=== PATIENT | male | born 1950 | race Caucasian/White ===

== ENCOUNTER → 2023-12-06 06:11 | Day surgery (SDC) | payer MEDICARE, OTHER, SELFPAY | LOC: GI 06:11 | PROVIDERS: ATTENDING PHYSICIAN Internal Medicine | DX: Z12.11 Encounter for screening for malignant neoplasm of colon (principal); Z86.010 Personal history of colon polyps; K57.30 Diverticulosis of large intestine without perforation or abscess without bleeding; K64.8 Other hemorrhoids | CPT/HCPCS: G0105 ==

== ENCOUNTER 2024-03-29 01:06 | Emergency (ER) | payer MEDICARE, OTHER, SELFPAY ==
[2024-03-29 01:17] VITALS: BP 148/89
[2024-03-29 01:26] VITALS: BMI 29.1
--- NOTE | 2024-03-29 01:29 | ED.GENMED ---
History of Present Illness
<DO Luis Manuel Cheung Last Filed: 03/29/24 04:44>
General
Chief Complaint: Swelling
Source: patient
Exam Limitations: none
Time Seen by Provider: 03/29/24 01:21
Nursing documentation reviewed up to this point in time: agreed with
History of Present Illness
History of Present Illness:
Pleasant 73-year-old male that presents with angioedema. He states that this began yesterday afternoon after eating [employer]. Patient states that he had similar symptoms 8 months ago after he consumed [employer]. Today his lips started to
swell. He denies chest pain or shortness of breath. He has no difficulty swallowing. He reports that the first time he experienced this, he went to urgent care and received steroids which helped alleviate his symptoms. Patient has no known
allergies.
Past History
<DO Luis Manuel Cheung Last Filed: 03/29/24 04:44>
Past History
ED Past Medical History: Asthma and Other (Seasonal allergies)
ED Past Surgical History: None
Social History
Tobacco: Former smoker
Drug: None
Personal:
Living: with family
Phy Exam
<DO Luis Manuel Cheung Filed: 03/29/24 04:44>
General Physical Exam
General Presentation: moderate distress
General Skin: warm and dry
General Habitus: normal
General Mental: alert
General Hydration: appears well hydrated
ENT Exam
ENT Exam: swallowing well
Additional ENT: Oral mucosa is swollen. Oropharynx is clear
Eye Exam
Eye Exam: PERRL, cornea clear and conjunctiva normal
Cardiovascular Exam
Cardiovascular Exam: regular rate/rhythm and no edema
Pulmonary Exam
Pulmonary Exam: lungs clear, no respiratory distress, no rales, no crackles, no rhonchi, no stridor, no wheezing and no cough
Gastrointestinal Exam
Gastrointestinal Exam: normal bowel sounds, non tender, soft, no organomegaly, no pulsatile mass and non distended
Neurological Exam
Neurological Exam: alert, oriented x3, no motor deficits and speech normal
Musculoskeletal Exam
Musculoskeletal Exam: full ROM and no edema
Skin Exam
Skin Exam: normal color, warm/dry, no rash and no petechia
Psychiatric Exam
Psychiatric Exam: normal mood/affect
Scores
<ST ToritoPA - Last Filed: 03/29/24 06:12>
Heart Failure Risk
Heart Failure Risk Score: Not Applicable
Course
<Jourdan Angeles DO - Last Filed: 03/29/24 04:44>
Orders/Labs/Results
Orders:
Orders
03/29/24 01:28
Cardiac Monitoring- Treatment ONCE
0.9% Sodium Chloride 1000 ml [Nss] 1,000 ml IV BOLUS
Dexamethasone Sod Phosphate [Decadron] 20 mg IV NOW STA
Diphenhydramine [Benadryl] 50 mg IV NOW STA
Famotidine [Pepcid] 20 mg IV NOW STA
03/29/24 01:53
Complete Blood Count/With Diff Urgent
Comprehensive Metabolic Panel Urgent
Abnormal Lab Results
03/29/24
01:53
RBC 4.06 L 10^6/uL
(4.70-6.10)
Hct 37.5 L %
(39.0-52.0)
MCH 32.5 H pg
(27.0-31.0)
Eosinophils % 6.8 H %
(0-6)
Chloride 109 H mmol/L
(98-107)
BUN 21 H mg/dl
(9-20)
Glucose 103 H mg/dl
(70-99)
03/29/24 01:53
07/12/24 01:53
Vital Signs
Initial and Last Documented VS:
Initial Vital Signs
Temp Pulse Resp BP Pulse Ox
97.9 F 84 20 148/89 92
03/29/24 01:17 03/29/24 01:17 03/29/24 01:17 03/29/24 01:17 03/29/24 01:17
Last Documented Vital Signs
Temp Pulse Resp BP Pulse Ox
97.9 F 74 9 123/83 92
03/29/24 01:17 03/29/24 02:30 03/29/24 04:01 03/29/24 04:00 03/29/24 04:45
Hernandezlt;Jaziel Cedeno, [facility] - Last Filed: 03/29/24 06:12>
Orders/Labs/Results
Orders:
Orders
03/29/24 01:28
Cardiac Monitoring- Treatment ONCE
0.9% Sodium Chloride 1000 ml [Nss] 1,000 ml IV BOLUS
Dexamethasone Sod Phosphate [Decadron] 20 mg IV NOW STA
Diphenhydramine [Benadryl] 50 mg IV NOW STA
Famotidine [Pepcid] 20 mg IV NOW STA
03/29/24 01:53
Complete Blood Count/With Diff Urgent
Comprehensive Metabolic Panel Urgent
Abnormal Lab Results
03/29/24
01:53
RBC 4.06 L 10^6/uL
(4.70-6.10)
Hct 37.5 L %
(39.0-52.0)
MCH 32.5 H pg
(27.0-31.0)
Eosinophils % 6.8 H %
(0-6)
Chloride 109 H mmol/L
(98-107)
BUN 21 H mg/dl
(9-20)
Glucose 103 H mg/dl
(70-99)
03/29/24 01:53
03/29/24 01:53
Vital Signs
Initial and Last Documented VS:
Initial Vital Signs
Temp Pulse Resp BP Pulse Ox
97.9 F 84 20 148/89 92
03/29/24 01:17 03/29/24 01:17 03/29/24 01:17 03/29/24 01:17 03/29/24 01:17
Last Documented Vital Signs
Temp Pulse Resp BP Pulse Ox
97.9 F 74 9 123/83 92
03/29/24 01:17 03/29/24 02:30 03/29/24 04:01 03/29/24 04:00 03/29/24 04:45
<HAMLET Ugarte - Last Filed: 03/29/24 06:12>
MDM/Problems Addressed
Differential Diagnosis Includes:
angioedema, anaphylaxis, food allergy
<HAMLET Ugarte - Last Filed: 03/29/24 06:12>
*Critical Care Note
Total Time (30-74mins, 75-104mins- exclusive of procedures): Not Applicable
<Jourdan Angeles DO - Last Filed: 03/29/24 04:44>
Update Note
Update Note:
03/29/2024 02:17 - Pt reports no change in symptoms after receiving IV Decadron 20 mg, IV Benadryl 50 mg, IV Pepcid 20 mg, and IV fluids. Pt continues to exhibit angioedema. No SOB or difficulty swallowing.
03/29/2024 0439 AM-patient states that his symptoms are improving. He wishes to be discharged. He states that 'he has a place to be and has to leave by 5 AM '. I am concerned because his angioedema, while improved, is still present. He states he
has no difficulty breathing or swallowing. I tried to encourage him to stay longer so that we can continue to observe him. He refuses. I did discuss return to ER instructions with patient. Patient verbalized good understanding of said
instructions as well as the risks of leaving at this point. Patient being discharged in much improved but not completely resolved condition.
<ST ToritoPA - Last Filed: 03/29/24 06:12>
Update Note
Update Note:
03/29/2024 02:17 - Pt reports no change in symptoms after receiving IV Decadron 20 mg, IV Benadryl 50 mg, IV Pepcid 20 mg, and IV fluids. Pt continues to exhibit angioedema. No SOB or difficulty swallowing.
ED Attending Note
<Jourdan Angeles DO - Last Filed: 03/29/24 04:44>
-
Portions of this chart may have been created with voice recognition software.� Occasional wrong word or��sound alike� substitutions may have occurred due to the inherent limitations of voice recognition software.
Discharge Plan
Departure
Patient Disposition: Home (Routine Discharge)
Date of Disposition: 03/29/24
Time of Disposition: 04:42
Patient with high blood pressure during this ER visit?: Yes
Condition: Good
Discharge Problem:
Angioedema, Allergic reaction
Instructions: Angioedema, Allergic Reaction ED, BLOOD PRESSURE
Prescriptions:
New
diphenhydramine HCl [Benadryl] 25 mg capsule
25 mg PO TID PRN (Reason: allergy symptoms) Qty: 14 0RF
prednisone 50 mg Tablet
50 mg PO DAILY Qty: 5 0RF
epinephrine [EpiPen] 0.3 mg/0.3 mL Auto-Injector
0.3 mg IM .STAT PRN (Reason: anaphylaxis) Qty: 1 0RF
famotidine [Pepcid] 40 mg tablet
40 mg PO DAILY Qty: 10 0RF
No Action
atorvastatin 40 MG tablet
40 mg PO QPM
aspirin 81 MG tablet,delayed release (DR/EC)
81 mg PO DAILY
albuterol sulfate 1 PUFF HFA aerosol inhaler
2 puff inhalation R Q4HPRN PRN (Reason: sob/wheeze)
fluticasone propionate 1 SPRAY spray,suspension
1 spray intranasal DAILY
pantoprazole 40 MG tablet,delayed release (DR/EC)
40 mg PO DAILY Qty: 30 0RF
Patient Comments:
Discontinued
loratadine 10 MG tablet
10 mg PO DAILY Qty: 30 0RF
Patient Comments:
discontinued
montelukast 10 MG tablet
10 mg PO QPM Qty: 30 2RF
Patient Comments:
Discontinued
beclomethasone dipropionate [Qvar] 8.7 GM aerosol
8.7 gm IH DAILY Qty: 1 2RF
Patient Comments:
Discontinued
prednisone 10 MG tablet
10 mg PO .TAPER Qty: 30 0RF
Rx Instructions:
Take 40mg daily x3days, 30mg daily x3days,
20mg daily x3days, 10mg daily x3days.
Activity Restrictions/Additional Instructions:
Please do not eat [employer] .
Follow-up with an merchandiser retail representative for testing.
Use the EpiPen prescribed if you develop difficulty breathing, swallowing or any other concerning symptom.
Your prescriptions were sent electronically to the pharmacy that you specified.
It was a pleasure meeting you and taking part in your care. We hope for your continued healing and wellness.
Please read discharge instructions in their entirety. However, they are for general education and may not describe your exact diagnosis at discharge. Information on your ER visit and medical conditions were discussed with you along with appropriate
follow up information...
If indicated, please take your medications as instructed and indicated on discharge paperwork.
Please schedule a follow up appointment as directed. Call to schedule an appointment
Please return to the emergency department with ANY change in, persisting, or worsening of symptoms. If any of your symptoms do not improve, or persist, or become more severe within 6-12 hours, please return to the emergency department for further
care.
Please return to the emergency department if you develop a headache, neck pain/stiffness, fever greater than 100.4F, chest pain, shortness of breath, persistent nausea, vomiting, slurred speech, difficulty walking, numbness/tingling, weakness, signs
of infection or any other symptoms that are worrisome to you.
If you have any questions or concerns please do not hesitate to call the Hospital at or E-mail me directly at [email or web address]
Interventions
Interventions:
*Risk Screen - Suicide Last Done: 03/29/24 01:26
*General Assessment Last Done: 03/29/24 01:26
*Neglect/Abuse Screening Last Done: 03/29/24 01:26
ED- Fall Risk Assessment Last Done: 03/29/24 01:26
*ED COVID-19 Vaccine History Last Done: 03/29/24 01:26
*Nursing Disposition Last Done: 03/29/24 05:42
ED- Cardiac Assessment Last Done: 03/29/24 01:26
ED- Pulmonary Assessment Last Done: 03/29/24 01:26
ED-Skin Assessment Last Done: 03/29/24 01:34
Discharge Date and Time
Discharge Date/Time: 03/29/24 05:43
Print Language: BRUNEIAN
[2024-03-29 01:33] VITALS: BP 132/89
[2024-03-29] MEDS: BENADRYL 50 MG IV (01:42)
[2024-03-29] MEDS: PEPCID 20 MG IV (01:42)
[2024-03-29] MEDS: DECADRON 20 MG IV (01:42)
[2024-03-29] MEDS: NSS 1000 IV (01:43)
[2024-03-29 02:00] VITALS: BP 149/92
[2024-03-29 02:08] LABS: % Basophils 0.6 % (0-2); % Eosinophils 6.8 % (0-6); % Immature Granulocytes 0.2 % (0-0.5); % Lymphocytes 35.6 % (20.5-51.1); % Monocytes 7.4 % (1.7-9.3); % Neutrophils 49.4 % (42.2-75.2); Absolute Eosinophils 0.4 10^3/uL (0-0.7); Absolute Lymphocytes 1.9 10^3/uL (1.2-3.4); Absolute Monocytes 0.4 10^3/uL (0.1-0.6); Absolute Neutrophils 2.6 10^3/uL (1.4-6.5); Hematocrit 37.5 % (39.0-52.0); Hemoglobin 13.2 g/dL (13.0-18.0); Mean Corp Hgb Conc. 35.2 g/dL (33.0-37.0); Mean Corpuscular Hgb 32.5 pg (27.0-31.0); Mean Corpuscular Volume 92.4 fL (80.0-94.0); Mean Platelet Volume 9.3 fL (7.4-10.4); Nucleated Red Blood Cells % 0 % (-); Platelet Count 233 10^3/uL (130-400); Red Blood Cell Count 4.06 10^6/uL (4.70-6.10); Red Cell Dist. Width 12.5 % (11.5-14.5); White Blood Cell Count 5.3 10^3/uL (4.8-10.8)
[2024-03-29 02:30] LABS: ALT (SGPT) 18 U/L (0-50); AST (SGOT) 27 U/L (17-59); Albumin 4.1 g/dl (3.5-5.0); Alkaline Phosphatase 75 U/L (38-126); Blood Urea Nitrogen 21 mg/dl (9-20); Calcium 9.7 mg/dl (8.4-10.2); Carbon Dioxide 22 mmol/L (22-30); Chloride 109 mmol/L (98-107); Estimated Creatinine Clearance 90 ml/min; Glucose 103 mg/dl (70-99); Potassium 4.2 mmol/L (3.5-5.1); Sodium 141 mmol/L (135-145); Total Bilirubin 0.5 mg/dl (0.2-1.3); Total Protein 6.9 g/dl (6.3-8.2); eGFR > 60.00
[2024-03-29 03:00] VITALS: BP 146/99
[2024-03-29 04:00] VITALS: BP 123/83
== END 2024-03-29 05:43 | disposition home or self-care (01) ==
LOC: EMR 01:06
PROVIDERS: EMERGENCY PHYSICIAN Student in an Organized Health Care Education/Training Program
DX: T78.3XXA Angioneurotic edema, initial encounter (principal); T78.40XA Allergy, unspecified, initial encounter; X58.XXXA Exposure to other specified factors, initial encounter; J45.909 Unspecified asthma, uncomplicated; Z87.891 Personal history of nicotine dependence
CPT/HCPCS: 99283; 96374; 96375; 96361; 80053; 85025

== ENCOUNTER 2024-07-30 06:46 | Emergency (ER) | payer MEDICARE, OTHER, SELFPAY ==
[2024-07-30 06:49] VITALS: BP 134/99
--- NOTE | 2024-07-30 07:38 | ED.GENMED ---
History of Present Illness
General
Chief Complaint: Swelling
Source: patient
Exam Limitations: none
Time Seen by Provider: 07/30/24 07:17
Nursing documentation reviewed up to this point in time: agreed with
History of Present Illness
History of Present Illness:
73 yo male presents for swelling right lower cheek noted upon awakening this a.m. No known exposures. Has been here in the past for lower lip swelling and diagnosed with angioedema/allergic reaction. He states this isn't like previous visits as his
lower lip was swollen then, today just the lower right cheek with no lip involvement. He thinks he was sleeping 'weird' with his fist against his right cheek. He has poor teeth and the inner cheek may have been rubbing against his tooth.
Denies fever/states area minimally tender. Denies toothache. Took Benadryl and states the swelling is 50% better.
Past History
Past History
ED Past Medical History: Asthma and Other (Seasonal allergies)
ED Past Surgical History: Other (hernia repair)
Social History
Tobacco: Former smoker
Alcohol: None
Drug: None
Personal:
Living: with family
Review of Systems
Review of Systems
Allergies reviewed?: Yes
All Other Systems: ROS reviewed and negative except as documented in HPI and ROS
Constitutional: Denies fever
EENT: Reports mouth swelling (lower inner right cheek); Denies sore throat
Respiratory: Denies trouble breathing
Cardiac: Denies chest pain
ABD/GI: Denies abdominal pain or nausea
Musculoskeletal: Reports no symptoms
Skin: Reports no symptoms
Neurological: Reports no symptoms
Phy Exam
Physical Exam
Physical Exam:
GENERAL: No acute distress. A&Ox3.
CONSTITUTIONAL: Afebrile.
Neck: Supple, no lymphadenopathy
ENMT: moist mucus membranes, Pharynx nl, TMs normal. Mild STS inner aspect right cheek with minute abrasion. Lips are normal, without swelling.
RESPIRATORY: Regular respirations, nonlabored, lungs clear.
CARDIOVASCULAR: Regular rate and rhythm, no murmurs, no rubs.
MUSCULOSKELETAL: Moves with ease. Well perfused.
SKIN: Warm, dry, pink
PSYCH: Normal mood and affect. Well kept, interactive and appropriate
NEUROLOGIC: Awake, alert and oriented. No focal neurological deficits
Scores
Heart Failure Risk
Heart Failure Risk Score: Not Applicable
Course
Vital Signs
Initial and Last Documented VS:
Initial Vital Signs
Temp Pulse Resp BP Pulse Ox
98.1 F 85 16 134/99 98
07/30/24 06:49 07/30/24 06:49 07/30/24 06:49 07/30/24 06:49 07/30/24 06:49
Last Documented Vital Signs
Temp Pulse Resp BP Pulse Ox
98.1 F 85 16 134/99 98
07/30/24 06:49 07/30/24 06:49 07/30/24 06:49 07/30/24 06:49 07/30/24 06:49
MDM/Problems Addressed
Differential Diagnosis Includes:
angioedema, allergic reaction, traumatic STS inner right cheek
MDM/Problems Addressed:
73 yo male presents for swelling right lower cheek noted upon awakening this a.m. No known exposures. Has been here in the past for lower lip swelling and diagnosed with angioedema/allergic reaction. He states this isn't like previous visits as his
lower lip was swollen then, today just the lower right cheek with no lip involvement. He thinks he was sleeping 'weird' with his fist against his right cheek. He has poor teeth and the inner cheek may have been rubbing against his tooth.
Denies fever/states area minimally tender. Denies toothache. Took Benadryl and states the swelling is 50% better.
Afebrile, no visible or palpable abscess.
Inner right cheek with minute abrasion and soft tissue swelling. Exam consistent with STS due to minor trauma.
*Critical Care Note
Total Time (30-74mins, 75-104mins- exclusive of procedures): Not Applicable
ED Attending Note
-
Portions of this chart may have been created with voice recognition software.� Occasional wrong word or��sound alike� substitutions may have occurred due to the inherent limitations of voice recognition software.
Discharge Plan
Departure
Patient Disposition: Home (Routine Discharge)
Date of Disposition: 07/30/24
Time of Disposition: 07:33
Patient with high blood pressure during this ER visit?: No
Condition: Good
Discharge Problem:
Mucosal edema
Prescriptions:
No Action
atorvastatin 40 MG tablet
40 mg PO QPM
aspirin 81 MG tablet,delayed release (DR/EC)
81 mg PO DAILY
albuterol sulfate 1 PUFF HFA aerosol inhaler
2 puff inhalation R Q4HPRN PRN (Reason: sob/wheeze)
fluticasone propionate 1 SPRAY spray,suspension
1 spray intranasal DAILY
pantoprazole 40 MG tablet,delayed release (DR/EC)
40 mg PO DAILY Qty: 30 0RF
Patient Comments:
Discontinued
loratadine 10 MG tablet
10 mg PO DAILY Qty: 30 0RF
Patient Comments:
discontinued
montelukast 10 MG tablet
10 mg PO QPM Qty: 30 2RF
Patient Comments:
Discontinued
beclomethasone dipropionate [Qvar] 8.7 GM aerosol
8.7 gm IH DAILY Qty: 1 2RF
Patient Comments:
Discontinued
prednisone 10 MG tablet
10 mg PO .TAPER Qty: 30 0RF
Rx Instructions:
Take 40mg daily x3days, 30mg daily x3days,
20mg daily x3days, 10mg daily x3days.
diphenhydramine HCl [Benadryl] 25 mg capsule
25 mg PO TID PRN (Reason: allergy symptoms) Qty: 14 0RF
prednisone 50 mg Tablet
50 mg PO DAILY Qty: 5 0RF
epinephrine [EpiPen] 0.3 mg/0.3 mL Auto-Injector
0.3 mg IM .STAT PRN (Reason: anaphylaxis) Qty: 1 0RF
famotidine [Pepcid] 40 mg tablet
40 mg PO DAILY Qty: 10 0RF
Referrals:
[facility] [Other] - As needed
Activity Restrictions/Additional Instructions:
As we discussed, you have a small abrasion on the inner right cheek mucosa. Most likely from sleeping as you told me with your fist pressed against your cheek and the inner cheek pressed against a tooth. The swelling is from the trauma of the inner
cheek.
Cool compress to the outer cheek for 10 minutes 4 times a day and sucking on ice chips may help the swelling
I see no sign of significant infection, this is not an allergic reaction or angioedema like your previous lip swelling events.
Return here immediately if the swelling worsens or you feel worse in any way.
Interventions
Interventions:
*General Assessment Last Done: 07/30/24 06:49
*Neglect/Abuse Screening Last Done: 07/30/24 06:49
*Nursing Disposition Last Done: 07/30/24 07:55
Discharge Date and Time
Discharge Date/Time: 07/30/24 08:00
Print Language: [email or web address]
== END 2024-07-30 08:00 | disposition home or self-care (01) ==
LOC: EMR 06:46
PROVIDERS: EMERGENCY PHYSICIAN Emergency Medicine
DX: R60.0 Localized edema (principal); S00.512A Abrasion of oral cavity, initial encounter; X58.XXXA Exposure to other specified factors, initial encounter; J45.909 Unspecified asthma, uncomplicated; Z87.891 Personal history of nicotine dependence
CPT/HCPCS: 99282